=== PATIENT | male | born 1965 | race Caucasian/White ===

== ENCOUNTER 2020-07-27 14:18 | Emergency (ER) | payer OTHER ==
[~2020-07-27] VITALS: Ht 182.9 cm; Wt 97.5 kg
--- NOTE | 2020-07-27 14:25 | NUR ---
biblapd denies any medical complaints pt is here needs medical clearance. NO C/O pain or discomfort. all needs attended. pt accompanied by [employer] at bedside
--- NOTE | 2020-07-27 14:25 | NUR ---
dr martinez at pt bedside for eval
[2020-07-27 14:43] VITALS: BP 140/76
== END 2020-07-27 14:44 | disposition home or self-care (01) ==
LOC: ER 14:22
DX: Z02.89 Encounter for other administrative examinations (principal)